=== PATIENT | female | born 1960 | race American Indian/Alaskan Native ===

== ENCOUNTER 2021-10-10 10:08 | Emergency (ER) | payer SELFPAY ==
[2021-10-10 10:35] VITALS: BP 137/74
[2021-10-10] MEDS ORDERED: BUPIVACAINE/PF (0.5%) 5 MG/1 ML 10 ML VIAL INFILTRATI ONE (10:35)
--- NOTE | 2021-10-10 10:38 | Emergency Department Report ---
ED Extremity Problem HPI - General Chief complaint: Extremity Injury, Upper Stated complaint: FINGER WITH POSS INFECTION Time Seen by Provider: 10/10/21 10:19 Source: patient Mode of arrival: Ambulatory Limitations: No Limitations - History of Present Illness Initial comments: 61-year-old female presents to the ER today with complaints of right middle fi nger pain and swelling. Patient states that symptoms started 6 days ago and has been getting worse. She states that the pain and the swelling is mainly to the distal aspect of her finger and she thinks it may be have started from a hangnail. She denies any recent manicures or any manipulation to her nail or nail folds recently. Denies any biting of her finger. She states that she has been soaking her finger which has only helped decrease the swelling mildly. She reports redness to the finger. She denies any fever or chills. She reports no additional symptoms at this time MD Complaint: other (distal right middle finger pain and swelling ) -: days(s) (5) - Related Data Previous Rx's Medication Instructions Recorded Last Taken Type Amoxicillin/K Clav Tab [Augmentin 1 tab PO Q12HR #14 tab 10/29/15 Unknown Rx 875 mg] Prednisone [predniSONE 10 mg 10 mg PO .TAPER #1 tab.ds.pk 02/07/16 Unknown Rx (6-Day Pack, 21 Tabs)] traMADoL [Ultram 50 MG tab] 50 mg PO Q6HR PRN #14 tablet 02/07/16 Unknown Rx Acetaminophen/Codeine [Tylenol 1 tab PO Q4HR PRN #12 tablet 10/10/21 Unknown Rx /Codeine # 3 tab] Clindamycin [Clindamycin CAP] 300 mg PO Q6H #40 capsule 10/10/21 Unknown Rx Ibuprofen [Motrin 800 MG tab] 800 mg PO Q8HR PRN #30 tablet 10/10/21 Unknown Rx Allergies Allergy/AdvReac Type Severity Reaction Status Date / Time No Known Allergies Allergy Unverified 10/29/15 19:28 ED Review of Systems ROS: Stated complaint: FINGER WITH POSS INFECTION Other details as noted in HPI Comment: All other systems reviewed and negative Constitutional: denies: chills, fever Musculoskeletal: joint swelling, arthralgia ED Past Medical Hx - Past Medical History Previous Medical History?: No - Surgical History Past Surgical History?: No - Social History Smoking Status: Never Smoker Substance Use Type: None - Medications Home Medications: Home Medications Medication Instructions Recorded Confirmed Last Taken Type Amoxicillin/K Clav Tab [Augmentin 1 tab PO Q12HR #14 tab 10/29/15 Unknown Rx 875 mg] Prednisone [predniSONE 10 mg 10 mg PO .TAPER #1 tab.ds.pk 02/07/16 Unknown Rx (6-Day Pack, 21 Tabs)] traMADoL [Ultram 50 MG tab] 50 mg PO Q6HR PRN #14 tablet 02/07/16 Unknown Rx Acetaminophen/Codeine [Tylenol 1 tab PO Q4HR PRN #12 tablet 10/10/21 Unknown Rx /Codeine # 3 tab] Clindamycin [Clindamycin CAP] 300 mg PO Q6H #40 capsule 10/10/21 Unknown Rx Ibuprofen [Motrin 800 MG tab] 800 mg PO Q8HR PRN #30 tablet 10/10/21 Unknown Rx ED Physical Exam - General Limitations: No Limitations General appearance: alert, in no apparent distress - Head Head exam: Present: atraumatic, normocephalic, normal inspection - Eye Eye exam: Present: normal appearance, PERRL, EOMI Pupils: Present: normal accommodation - Respiratory Respiratory exam: Absent: respiratory distress - Cardiovascular Cardiovascular Exam: Present: regular rate, normal rhythm, normal heart sounds - Extremities Exam Extremities exam: Present: other (moderate swelling noted distal right 3rd finger especially over fat pad with associated moderate erythema but no streaking. Mild fluctuance noted nail fold. Area very ttp. cap refill nl, sensation intact, ROM nl ) - Neurological Exam Neurological exam: Present: alert, oriented X3, CN II-XII intact, normal gait - Psychiatric Psychiatric exam: Present: normal affect, normal mood - Skin Skin exam: Present: intact ED Course Vital Signs 10/10/21 10:13 Temperature 98.3 F Pulse Rate 109 H Respiratory 18 Rate Blood Pressure 137/74 O2 Sat by Pulse 99 Oximetry - I & D Right Distal Finger Type of Procedure: Simple Site: distal right 3rd finger Blade Size: 11 I & D Procedure: betadine prep Progress: Only small amt of pus drained. Area irrigated with saline. No packing placed. Dressing applied. Patient tolerated procedure well without complication. - Nerve Block Consent Obtained: verbal consent Time Out Performed: No Local Anesthetic Used: Marcaine 0.5% Amount of anesthesia used: 6 Side: right Nerve Blocks: digital (3rd finger ) Procedure Successful: Yes Complications: none Patient Tolerated Procedure: well, no complications ED Medical Decision Making - Medical Decision Making Patient with paronychia to her right third finger with some cellulitis mainly over the fat pad of the finger. There is no streaking cellulitis. There is no diffuse swelling throughout the finger, she has full range of motion of the finger, cap refills normal and sensation intact. No apparent evidence at this time for infectious tenosynovitis. I&D performed by me, see procedure note for detail. Discussed wound care with patient. She will be started on oral antibiotics and given medication for pain. Patient expressed understanding and agree with plan. Patient was stable at time of discharge Critical care attestation.: If time is entered above; I have spent that time in minutes in the direct care of this critically ill patient, excluding procedure time. ED Disposition Clinical Impression: Paronychia, finger Disposition: 01 HOME / SELF CARE / HOMELESS Is pt being admited?: No Does the pt Need Aspirin: No Condition: Stable Instructions: Paronychia, [id number] Additional Instructions: I recommend that you take the clindamycin as prescribed and to completion. Take the motrin and the tylenol 3 as prescribed for pain. Keep finger clean with soap and water. You can apply warm compresses to area. Follow up with your PCP. Return to ED if worse. Prescriptions: Clindamycin [Clindamycin CAP] 300 mg PO Q6H #40 capsule Ibuprofen [Motrin 800 MG tab] 800 mg PO Q8HR PRN #30 tablet PRN Reason: Pain Acetaminophen/Codeine [Tylenol /Codeine # 3 tab] 1 tab PO Q4HR PRN #12 tablet PRN Reason: Pain Referrals: [facility] [Provider Group] - 3-5 Days Time of Disposition: 11:28 Print Language: CITIZEN OF [place]
== END 2021-10-10 11:39 | disposition home or self-care (01) ==
LOC: ED 10:08
DX: L03.011 Cellulitis of right finger (principal); Z79.899 Other long term (current) drug therapy
CPT/HCPCS: 10060; 99282; J3490

== ENCOUNTER 2021-12-30 10:59 | Emergency (ER) | payer SELFPAY ==
--- NOTE | 2021-12-30 14:10 | XRay Report ---
XR finger(s) 2+V LT INDICATION / CLINICAL INFORMATION: pain p smashing finger. COMPARISON: None available. FINDINGS: BONES/JOINT(S): There is a nondisplaced fracture of the distal tuft of the distal phalanx in the ring finger. No significant degenerative changes. SOFT TISSUES: No significant abnormality. ADDITIONAL FINDINGS: None. Signer Name: Ben Sal MD Signed: 12/30/2021 2:05 PM Workstation Name: [id number]
--- NOTE | 2021-12-30 14:12 | Emergency Department Report ---
ED Extremity Problem HPI - General Chief complaint: Extremity Injury, Upper Stated complaint: LFT FINGER SWOLLEN Time Seen by Provider: 12/30/21 13:15 Source: patient Mode of arrival: Ambulatory Limitations: No Limitations - History of Present Illness Initial comments: Patient is a 61-year-old female that comes to the emergency room complaining of left second finger pain after slamming her finger. She has no subungual hematoma. Finger is swollen but she has range of motion. Denies any other injury. Hand and wrist within normal limits with no injury. Tdap up-to-date No bleeding laceration abrasion Location: left History of Same: No Consistency: constant Improves with: nothing Worsens with: nothing Associated Symptoms: denies other symptoms - Related Data Previous Rx's Medication Instructions Recorded Last Taken Type Amoxicillin/K Clav Tab [Augmentin 1 tab PO Q12HR #14 tab 10/29/15 Unknown Rx 875 mg] Prednisone [predniSONE 10 mg 10 mg PO .TAPER #1 tab.ds.pk 02/07/16 Unknown Rx (6-Day Pack, 21 Tabs)] traMADoL [Ultram 50 MG tab] 50 mg PO Q6HR PRN #14 tablet 02/07/16 Unknown Rx Acetaminophen/Codeine [Tylenol 1 tab PO Q4HR PRN #12 tablet 10/10/21 Unknown Rx /Codeine # 3 tab] Clindamycin [Clindamycin CAP] 300 mg PO Q6H #40 capsule 10/10/21 Unknown Rx Ibuprofen [Motrin 800 MG tab] 800 mg PO Q8HR PRN #30 tablet 10/10/21 Unknown Rx Allergies Allergy/AdvReac Type Severity Reaction Status Date / Time No Known Allergies Allergy Verified 12/30/21 13:15 ED Review of Systems ROS: Stated complaint: LFT FINGER SWOLLEN Other details as noted in HPI Comment: All other systems reviewed and negative ED Past Medical Hx - Past Medical History Previous Medical History?: Yes Hx Diabetes: Yes - Surgical History Past Surgical History?: No - Family History Family history: no significant - Social History Smoking Status: Never Smoker Substance Use Type: None - Medications Home Medications: Home Medications Medication Instructions Recorded Confirmed Last Taken Type Amoxicillin/K Clav Tab [Augmentin 1 tab PO Q12HR #14 tab 10/29/15 Unknown Rx 875 mg] Prednisone [predniSONE 10 mg 10 mg PO .TAPER #1 tab.ds.pk 02/07/16 Unknown Rx (6-Day Pack, 21 Tabs)] traMADoL [Ultram 50 MG tab] 50 mg PO Q6HR PRN #14 tablet 02/07/16 Unknown Rx Acetaminophen/Codeine [Tylenol 1 tab PO Q4HR PRN #12 tablet 10/10/21 Unknown Rx /Codeine # 3 tab] Clindamycin [Clindamycin CAP] 300 mg PO Q6H #40 capsule 10/10/21 Unknown Rx Ibuprofen [Motrin 800 MG tab] 800 mg PO Q8HR PRN #30 tablet 10/10/21 Unknown Rx ED Physical Exam - General Limitations: No Limitations General appearance: alert, in no apparent distress - Head Head exam: Present: atraumatic, normocephalic - Eye Eye exam: Present: normal appearance - ENT ENT exam: Present: mucous membranes moist - Neck Neck exam: Present: normal inspection - Respiratory Respiratory exam: Present: normal lung sounds bilaterally. Absent: respiratory distress - Cardiovascular Cardiovascular Exam: Present: regular rate, normal rhythm. Absent: systolic murmur, diastolic murmur, rubs, gallop - GI/Abdominal GI/Abdominal exam: Present: soft, normal bowel sounds - Extremities Exam Extremities exam: Present: normal inspection - Expanded Upper Extremity Exam Left Hand Wrist exam: Present: other - Back Exam Back exam: Present: normal inspection - Neurological Exam Neurological exam: Present: alert, oriented X3 - Psychiatric Psychiatric exam: Present: normal affect, normal mood - Skin Skin exam: Present: warm, dry, intact, normal color. Absent: rash ED Course Vital Signs 12/30/21 13:12 Temperature 98.2 F Pulse Rate 86 Respiratory 14 Rate Blood Pressure 152/93 O2 Sat by Pulse 99 Oximetry ED Medical Decision Making - Radiology Data Radiology results: report reviewed, image reviewed no fx - Medical Decision Making xray neg for fracture Vital Signs 12/30/21 13:12 Temperature 98.2 F Pulse Rate 86 Respiratory 14 Rate Blood Pressure 152/93 O2 Sat by Pulse 99 Oximetry Patient has full range of motion of the finger. There is ecchymosis. No subungual hematoma. Rapid cap refill. Patient placed in a finger frog for comfort. Patient medicated for pain. Patient being discharged home with discharge plan of care including medication, rice treatment, activity and follow-up instructions. She verbalizes understanding. - Differential Diagnosis ro fx Critical care attestation.: If time is entered above; I have spent that time in minutes in the direct care of this critically ill patient, excluding procedure time. ED Disposition Clinical Impression: Finger contusion Qualifiers: Encounter type: initial encounter Finger: ring finger Damage to nail status: without damage Laterality: left Qualified Code(s): S60.042A - Contusion of left ring finger without damage to nail, initial encounter Disposition: HOME / SELF CARE / HOMELESS Is pt being admited?: No Does the pt Need Aspirin: No Condition: Stable Instructions: Contusion, [id number] Additional Instructions: rest ice elevate finger frog for 72 hours for comfort motrin or tylenol for pain follow up with Dr Vee if pain persists referral below Referrals: JAIME VEE MD [Staff Physician] - 3-5 Days Time of Disposition: 14:16
[2021-12-30] MEDS ORDERED: HYDROcodone/ACETAMINOPHEN 10-325MG TAB PO ONE (14:21)
[2021-12-30 14:35] VITALS: BP 138/84
== END 2021-12-30 19:06 | disposition home or self-care (01) ==
LOC: ED 10:59
DX: S60.042A Contusion of left ring finger without damage to nail, initial encounter (principal); E11.8 Type 2 diabetes mellitus with unspecified complications; X58.XXXA Exposure to other specified factors, initial encounter; Y93.89 Activity, other specified; Y92.89 Other specified places as the place of occurrence of the external cause; Y99.8 Other external cause status
CPT/HCPCS: 99283

== ENCOUNTER 2022-02-05 18:39 | Emergency (ER) | payer SELFPAY ==
[2022-02-05 18:53] VITALS: BP 146/89
[2022-02-05] MEDS ORDERED: KETOROLAC 60 MG/2 ML INJ IM ONE (19:21)
--- NOTE | 2022-02-05 19:39 | Emergency Department Report ---
ED General Adult HPI - General Chief complaint: Back Pain/Injury Stated complaint: KNOT ON HEEL/BACK PAIN Time Seen by Provider: 02/05/22 19:12 Source: patient Mode of arrival: Ambulatory Limitations: No Limitations - History of Present Illness Initial comments: 61-year-old -Mal[place]ian female patient complains of right heel pain and back pain for 2 weeks. She states history of recurrent low back pain and denies any new injuries, numbness/tingling/weakness in her limbs, loss of bladder/bowel control, IV drug use, or chronic steroid use. Past medical history includes diabetes. No past medical history of cancer per patient. She rates her overall pain as a 7/10 in severity. She denies any injuries to the right heel or redness and states there is a knot in the area when she touches it. - Related Data Previous Rx's Medication Instructions Recorded Last Taken Type Amoxicillin/K Clav Tab [Augmentin 1 tab PO Q12HR #14 tab 10/29/15 Unknown Rx 875 mg] Prednisone [predniSONE 10 mg 10 mg PO .TAPER #1 tab.ds.pk 02/07/16 Unknown Rx (6-Day Pack, 21 Tabs)] traMADoL [Ultram 50 MG tab] 50 mg PO Q6HR PRN #14 tablet 02/07/16 Unknown Rx Acetaminophen/Codeine [Tylenol 1 tab PO Q4HR PRN #12 tablet 10/10/21 Unknown Rx /Codeine # 3 tab] Clindamycin [Clindamycin CAP] 300 mg PO Q6H #40 capsule 10/10/21 Unknown Rx Ibuprofen [Motrin 800 MG tab] 800 mg PO Q8HR PRN #30 tablet 10/10/21 Unknown Rx Acetaminophen/Codeine [Tylenol 1 tab PO Q8H PRN #8 tab 02/05/22 Unknown Rx /Codeine # 3 tab] Naproxen 500 mg PO BID PRN #20 tab 02/05/22 Unknown Rx methocarbamoL [Methocarbamol] 750 - 1,500 mg PO TID PRN #24 tab 02/05/22 Unknown Rx Allergies Allergy/AdvReac Type Severity Reaction Status Date / Time No Known Allergies Allergy Verified 12/30/21 13:15 ED Review of Systems ROS: Stated complaint: KNOT ON HEEL/BACK PAIN Other details as noted in HPI Constitutional: denies: chills, diaphoresis, fever, malaise, weakness Respiratory: denies: cough, shortness of breath Genitourinary: denies: urgency, dysuria, frequency, hematuria, discharge Musculoskeletal: back pain, joint swelling, arthralgia Neurological: denies: numbness, paresthesias, abnormal gait ED Past Medical Hx - Past Medical History Hx Diabetes: Yes - Social History Smoking Status: Never Smoker Substance Use Type: None - Medications Home Medications: Home Medications Medication Instructions Recorded Confirmed Last Taken Type Amoxicillin/K Clav Tab [Augmentin 1 tab PO Q12HR #14 tab 10/29/15 Unknown Rx 875 mg] Prednisone [predniSONE 10 mg 10 mg PO .TAPER #1 tab.ds.pk 02/07/16 Unknown Rx (6-Day Pack, 21 Tabs)] traMADoL [Ultram 50 MG tab] 50 mg PO Q6HR PRN #14 tablet 02/07/16 Unknown Rx Acetaminophen/Codeine [Tylenol 1 tab PO Q4HR PRN #12 tablet 10/10/21 Unknown Rx /Codeine # 3 tab] Clindamycin [Clindamycin CAP] 300 mg PO Q6H #40 capsule 10/10/21 Unknown Rx Ibuprofen [Motrin 800 MG tab] 800 mg PO Q8HR PRN #30 tablet 10/10/21 Unknown Rx Acetaminophen/Codeine [Tylenol 1 tab PO Q8H PRN #8 tab 02/05/22 Unknown Rx /Codeine # 3 tab] Naproxen 500 mg PO BID PRN #20 tab 02/05/22 Unknown Rx methocarbamoL [Methocarbamol] 750 - 1,500 mg PO TID PRN #24 tab 02/05/22 Unknown Rx ED Physical Exam - General Limitations: No Limitations General appearance: alert, in no apparent distress, obese - Head Head exam: Present: atraumatic, normocephalic - Eye Eye exam: Present: normal appearance - Respiratory Respiratory exam: Absent: respiratory distress - Cardiovascular Cardiovascular Exam: Present: regular rate - Extremities Exam Extremities exam: Present: other (Tenderness to palpation noted to right heel without swelling or skin changes noted; normal pedal pulses noted; full range of motion of the ankle is noted) - Back Exam Back exam: Present: full ROM. Absent: paraspinal tenderness, vertebral tenderness - Neurological Exam Neurological exam: Present: alert, oriented X3 - Psychiatric Psychiatric exam: Present: normal affect, normal mood - Skin Skin exam: Present: warm, dry, intact, normal color. Absent: rash ED Course Vital Signs 02/05/22 02/05/22 02/05/22 18:51 19:12 19:33 Temperature 98.5 F Pulse Rate 102 H 76 Respiratory 16 16 Rate Blood Pressure 146/89 [Left] O2 Sat by Pulse 98 Oximetry ED Medical Decision Making - Radiology Data Radiology results: report reviewed Right foot 3 views INDICATION: Right heel pain IMPRESSION: Prominent enthesopathic changes identified along the Achilles insertion and the plantar fascia insertion of the calcaneus. - Medical Decision Making 61-year-old -[place] female patient complains of right heel pain and back pain for 2 weeks. She states history of recurrent low back pain and denies any new injuries, numbness/tingling/weakness in her limbs, loss of bladder/bowel control, IV drug use, or chronic steroid use. Past medical history includes diabetes. No past medical history of cancer per patient. She rates her overall pain as a 7/10 in severity. She denies any injuries to the right heel or redness and states there is a knot in the area when she touches it. X-rays negative for any acute bony abnormalities, but show bone spur of the heel. She denies any red flag symptoms of the low spine. We will treat with NSAIDs, icing, and muscle relaxers. Recommend follow-up primary care for further evaluation of chronic recurrent back pain. 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 She is otherwise well- appearing, her vitals are within normal limits, she is stable for discharge home. Strict return precautions were discussed in detail patient verbalized understanding Critical care attestation.: If time is entered above; I have spent that time in minutes in the direct care of this critically ill patient, excluding procedure time. ED Disposition Clinical Impression: Low back pain, Pain of right heel Disposition: HOME / SELF CARE / HOMELESS Is pt being admited?: No Condition: Stable Instructions: Heel Spur, Lumbosacral Strain Prescriptions: methocarbamoL [Methocarbamol] 750 - 1,500 mg PO TID PRN #24 tab PRN Reason: muscle spasm/tightness Naproxen 500 mg PO BID PRN #20 tab PRN Reason: Pain, Moderate (4-6) Acetaminophen/Codeine [Tylenol /Codeine # 3 tab] 1 tab PO Q8H PRN #8 tab PRN Reason: Pain , Severe (7-10) Referrals: [facility] [Provider Group] - 3-5 Days Forms: Work/School Release Form(ED)
--- NOTE | 2022-02-05 19:53 | XRay Report ---
Right foot 3 views INDICATION: Right heel pain IMPRESSION: Prominent enthesopathic changes identified along the Achilles insertion and the plantar f ascia insertion of the calcaneus. Signer Name: Michael Mcqueen MD Signed: 02/05/2022 7:49 PM Workstation Name: [id number]
== END 2022-02-05 20:35 | disposition home or self-care (01) ==
LOC: ED 18:39
DX: M54.50 Low back pain, unspecified (principal); M79.671 Pain in right foot; E11.9 Type 2 diabetes mellitus without complications; Z79.899 Other long term (current) drug therapy
CPT/HCPCS: 73630; 96372; 99283; J1885

== ENCOUNTER 2022-03-22 10:27 | Outpatient (CLI) | payer BC ==
[2022-03-22 11:11] LABS: Basophils % (Auto) 0.2 % (0.0-1.8); Eosinophils # (Auto) 0.1 K/mm3 (0.0-0.4); Eosinophils % (Auto) 0.9 % (0.0-4.3); Hematocrit 44.6 % (30.3-42.9); Hemoglobin 14.4 gm/dl (10.1-14.3); Lymphocytes # (Auto) 1.7 K/mm3 (1.2-5.4); Lymphocytes % (Auto) 25.7 % (13.4-35.0); Mean Corpuscular HGB Conc 32 % (30-34); Mean Corpuscular Volume 82 fl (79-97); Monocytes # (Auto) 0.6 K/mm3 (0.0-0.8); Monocytes % (Auto) 8.6 % (0.0-7.3); Platelet Count 232 K/mm3 (140-440); Red Blood Count 5.43 M/mm3 (3.65-5.03); Red Cell Distribution Width 15.8 % (13.2-15.2)
[2022-03-22 11:23] LABS: Bilirubin,Urine NEG (Negative); Blood,Urine MOD (Negative); Color,Urine Yellow (Yellow); Mucus,Urine 3+ /HPF
[2022-03-22 11:29] LABS: Erythrocyte Sedimentation Rate 56 mm/Hr (0-20)
[2022-03-22 11:41] LABS: Alanine Aminotransferase 29 units/L (7-56); Albumin 4.5 g/dL (3.9-5); Blood Urea Nitrogen 8 mg/dL (7-17); Calcium 9.6 mg/dL (8.4-10.2); Chol/HDL Ratio 2.16 %; HDL Cholesterol 50 mg/dL (40-59); Hemolysis Index 2; LDL Cholesterol,Direct 49 mg/dL (50-130); Uric Acid 5.4 mg/dL (3.5-7.6)
[2022-03-22 11:49] LABS: Creatinine,Urine 436.3 mg/dL (0.1-20.0); Microalbumin/Creatinine Ratio 22.2 ug/mg
[2022-03-22 11:49] LABS: BUN/Creatinine Ratio 13
== END 2022-03-22 10:28 | disposition home or self-care (01) ==
LOC: LAB 10:27
PROVIDERS: ATTEND Internal Medicine
DX: Z00.00 Encounter for general adult medical examination without abnormal findings (principal); E11.65 Type 2 diabetes mellitus with hyperglycemia; E78.5 Hyperlipidemia, unspecified; R53.83 Other fatigue; E55.9 Vitamin D deficiency, unspecified; M13.0 Polyarthritis, unspecified
CPT/HCPCS: 36415; 80053; 80061; 81001; 82043; 83036; 84443; 84550; 85025; 85652; 86038; 86431; 87086

== ENCOUNTER 2022-04-06 09:39 | Outpatient (CLI) | payer BC ==
--- NOTE | 2022-04-06 10:47 | XRay Report ---
RIGHT FOOT 3 VIEW(S) INDICATION / CLINICAL INFORMATION: FOOT PAIN COMPARISON: None available. FINDINGS: BONES / JOINT(S): No acute fracture or subluxation. No significant arthritis. SOFT TISSUES: No significant abnormality. ADDITIONAL FINDINGS: None. IMPRESSION: 1. No acute findings. Signer Name: Darío Thompson MD Signed: 04/06/2022 10:43 AM Workstation Name: [id number]
--- NOTE | 2022-04-06 10:47 | XRay Report ---
RIGHT ANKLE 3 VIEW(S) INDICATION / CLINICAL INFORMATION: M79.671 PAIN IN RIGHT FOOT/ANKLE COMPARISON: None available. FINDINGS: BONES / JOINT(S): No acute fracture or subluxation. No significant arthritis. No ankle joint effusion . Small calcaneal heel spur. SOFT TISSUES: Mild thickening of the distal Achilles with moderate retrotracheal ascending enthesopat hy. ADDITIONAL FINDINGS: None. IMPRESSION: 1. No acute findings. Signer Name: Darío Thompson MD Signed: 04/06/2022 10:42 AM Workstation Name: [id number]
== END 2022-04-06 09:40 | disposition home or self-care (01) ==
LOC: XRAY 09:39
PROVIDERS: ATTEND Internal Medicine
DX: M77.31 Calcaneal spur, right foot (principal)